=== PATIENT | male | born 1965 | race Caucasian/White ===

== ENCOUNTER → 2023-01-25 13:00 | Outpatient (BNV) | payer OTHER, SELFPAY | PROVIDERS: Visit Provider Psychiatry & Neurology Psychiatry | DX: F32.2 Major depressive disorder, single episode, severe without psychotic features (principal); F10.90 Alcohol use, unspecified, uncomplicated | CPT/HCPCS: 90792; 99214 ==

== ENCOUNTER 2023-02-01 13:00 | Outpatient (RCR) | payer OTHER, SELFPAY ==
[2023-01-25 14:26] VITALS: BP 124/60; PULSE 65; RESP 16; TEMP 36.9
[2023-01-25 14:28] VITALS: BMI 41.3
--- NOTE | 2023-01-25 14:42 | PC.ADMIT ---
Patient admitted to [facility] 01/25/23 with dx: MDD recurrent moderate, Generalized anxiety, Alcohol Dependence in remission since 12/2022. PHP is a step down from recent 7 day detox program. Patient reports he has maintained his sobriety. Patient declines substance use, except for marijuana in distant past only using a few times. Patient reports increased depression but states no SI without plan or intent. Patient denies SI. Patient able ti participate in nursing assessment. Affect appropriate, cooperative, anxious, depressed, responsive to questions, speech clear, clean and well groomed. Patient is goal oriented and states he thinks [facility] will help him. He states it has helped to hear others with similar mental health problems. All medications reconciled with patient and pharmacy. Safety issues reviewed with patient. Copy of Safety Plan given to patient. Nursing assessment completed and charted.
--- NOTE | 2023-01-25 15:17 | HO.PS.ADMBH ---
[facility] Date of Service: 01/25/23 Chief Complaint: depression,AUD Sources of Information: patient interviewed and chart reviewed Additional Sources of Information: [facility] [place] referral information [facility] Healthcare Proxy: No Guardianship: No Medical Problems Affecting Mental Status: No Narrative: 57-year-old male, presenting through therapist referral for major depressive disorder and alcohol use disorder. Last drink was 12/14/2022 and complete a 7-day detox. Currently on Wellbutrin 150 mg and naltrexone 50 mg. Recently had ketamine IV/IM without benefit. Also Latuda recently with nightmares. Low mood, anxiety, lack of enjoyment, poor sleep, low energy, negative view of self. No SI. No psychosis. No history of manic symptoms. Also reports that the house is in a poor state and he has not had the energy or motivation to address this. Hopeful for medications for depression. Has a history of 10 years sobriety in the past up until 2013 when his mother . Relapses since then have been associated with significant life stressors for example ex-girlfriend marrying somebody else, mother's , significant work situation not working out. Presents with major depressive disorder and comorbid alcohol use disorder. History of ketamine therapy, Recently with Dr. Garcia in [place] i.e. it was IV/IM. which was not beneficial. Other medication trials have included Lexapro, Effexor, Trintellix, Latuda, modafinil. Never been on buspirone, lithium, Remeron, Abilify. Never had TMS or ECT. No benefit from Wellbutrin over the last 1 year. Could benefit from alternative medications. Discussed buspirone, Remeron, lithium and Abilify. Overall decided to start Remeron at 15 mg at bedtime and can lower this to 7.5 mg if he experiences significant sedation. May also consider TMS in the future, but aware there are other medication options to try first. Past Psychiatric History: No inpatient episodes. History of partial hospital program. No manic or psychotic symptoms in the past. History of detoxes. History of ketamine therapy, Recently with Dr. Garcia in [place] i.e. it was IV/IM. which was not beneficial. Other medication trials have included Lexapro, Effexor, Trintellix, Latuda, modafinil. Never been on buspirone, lithium, Remeron, Abilify. Never had TMS or ECT. History of 1 suicidal gesture 20 years ago by putting a gun into his mouth. Current medications include naltrexone 50 mg, Wellbutrin 150 mg Nothing acute [facility] Medical History (Updated 01/25/23 @ 15:21 by Tin Mcclendon MD) Anemia Asthma Cirrhosis Diabetes mellitus, type 2 Hypercholesteremia Hypertension Social History: Born and raised in [place]. Lives In the [facility], where brothers and sisters live on the other side. Stable living situation. [employer] for law enforcement criminal justice. 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 Substance History: Alcohol use disorder. History of 10 years sobriety. Recent relapses in the context of psychosocial stressors. Recent discharge from 7-day detox. Trauma History: Bullied during high school Diagnostics Vital Signs (24Hr): Vital Signs - 24 hr 01/25/23 14:26 Temperature 98.4 F Pulse Rate 65 Respiratory Rate 16 Blood Pressure 124/60 BMI result Body Mass Index 41.3 Meds/Allergies Meds Home Medications Medication Instructions Recorded Confirmed Type albuterol sulfate 90 mcg/actuation 2 inh inhalation Q4H PRN Dyspnea 01/25/23 01/25/23 History aerosol inhaler bupropion HCl 150 mg 24 hr tablet, 150 mg PO DAILY 01/25/23 01/25/23 History extended release ezetimibe 10 mg tablet 10 mg PO DAILY 01/25/23 01/25/23 History folic acid 1 mg tablet 1 mg PO DAILY 01/25/23 01/25/23 History furosemide 40 mg tablet 40 mg PO DAILY 01/25/23 01/25/23 History metformin 1,000 mg tablet 1,000 mg PO BID 01/25/23 01/25/23 History naltrexone 50 mg tablet 50 mg PO DAILY 01/25/23 01/25/23 History ramipril 5 mg capsule 5 mg PO DAILY 01/25/23 01/25/23 History rosuvastatin 5 mg tablet 5 mg PO DAILY 01/25/23 01/25/23 History spironolactone 50 mg tablet 50 mg PO DAILY 01/25/23 01/25/23 History thiamine mononitrate (vit B1) 100 100 mg PO DAILY 01/25/23 01/25/23 History mg tablet (Vitamin B-1 (mononitrate)) Mental Status Exam Mental Status Exam Narrative: Pleasant. Engaged. Fairly presented. Organized. Depressed. No SI. No HI. No agitation. No psychosis. Insight and judgment fair Telehealth Telehealth Location of provider rendering services: other ([place]) Location of patient: other ([facility] Patient Identification confirmed using: Name, : Yes Telehealth method: video Patient verbally consented to treatment: Yes Minutes spent on Phone/Video with Pt.: 30 Assessment & Plan Assessment & Plan (1) Major depressive disorder, severe: Status: Acute Code(s): F32.2 - Major depressive disorder, single episode, severe without psychotic features (2) Alcohol use disorder: Status: Acute Code(s): F10.90 - Alcohol use, unspecified, uncomplicated Plan Presents with major depressive disorder and comorbid alcohol use disorder. History of ketamine therapy, Recently with Dr. Garcia in [place] i.e. it was IV/IM. which was not beneficial. Other medication trials have included Lexapro, Effexor, Trintellix, Latuda, modafinil. Never been on buspirone, lithium, Remeron, Abilify. Never had TMS or ECT. No benefit from Wellbutrin over the last 1 year. Could benefit from alternative medications. Discussed buspirone, Remeron, lithium and Abilify. Overall decided to start Remeron at 15 mg at bedtime and can lower this to 7.5 mg if he experiences significant sedation. May also consider TMS in the future, but aware there are other medication options to try first. Follow-up in 1 week Patient educated on: medication risk/benefits, substance abuse and therapeutic strategies Informed Consent: understands Reason for continued partial hosp. stay Substantial Risk for: med/psych decompensation Certification I certify that partial hospital treatment is medically necessary due to the symptoms and problems resulting from the patient's mental illness and the failure to treat the patient at the partial hospital level of care would likely result in the patient requiring inpatient psychiatric care which could not be prevented at a less intensive level of care. Time Spent With Patient Time: Total time managing care of this patient today _50___ minutes.
[2023-01-25 16:09] VITALS: BP 124/60; PULSE 65; RESP 16; TEMP 36.9
--- NOTE | 2023-01-28 14:07 | HO.PHP ---
i met with the client to review his treatment plan. He we discussed his level of anxiety and I asked him if he would like the therapist to directly prompt him. He states that would be helpful .
--- NOTE | 2023-01-28 14:13 | HO.PHP ---
I left a message for Myra Bird [facility] to call.
--- NOTE | 2023-01-30 08:53 | HO.PHP ---
I called and left a message for the clients therapist Myra BUCKLEY re client participation in the program.
--- NOTE | 2023-01-31 11:50 | HO.PHPPROGNO ---
Subjective Subjective Date of Service: 01/31/23 Reason For Visit: depression,AUD Medical Problems Affecting Mental Status: No Interim History: pt seen to day for f/u after starting new medication remeron 15 mg at bedtime; pt statesx he is tolerating well; he felt very tired at frist but the daytime sleepiness has remitted. he is sleeping well at night; he has had many med trials for depression in past; we discussed TMS and he was given some written information regarding TMS. He has a follow up appt with a new prescriber Josie Faye [employer]UCT[employer] TECHNICIAN in [place] Medication Compliance: Yes Side effects from medications: No Attending Groups: Yes Review of Systems Acute medical concerns: No Mental Status Exam Mental Status Exam Narrative: Pleasant. Engaged. Fairly presented. Organized. Depressed. No SI. No HI. No agitation. No psychosis. Insight and judgment fair Patient Appearance: Well Grooomed Patient Orientation: Person, Place, Time and Situation Level of Consciousness: Awake and Alert Patient Behavior: Appropriate Mood Description: Anxious Affect Description: Anxious Ability to Follow Directions: Good Speech Pattern: Clear Memory Description: Intact Hallucinations: None Delusions: Not Present Thought Process: Intact Thought Content: positive for Intact Judgement: Fair Diagnostics Vital Signs (24Hr): BMI result Body Mass Index 41.3 Assessment & Plan Assessment & Plan (1) Major depressive disorder, severe: Status: Acute Code(s): F32.2 - Major depressive disorder, single episode, severe without psychotic features (2) Alcohol use disorder: Status: Acute Code(s): F10.90 - Alcohol use, unspecified, uncomplicated Plan Presents with major depressive disorder and comorbid alcohol use disorder. History of ketamine therapy, Recently with Dr. Garcia in [place] i.e. it was IV/IM. which was not beneficial. Other medication trials have included Lexapro, Effexor, Trintellix, Latuda, modafinil. Never been on buspirone, lithium, Remeron, Abilify. Never had TMS or ECT. No benefit from Wellbutrin over the last 1 year. Could benefit from alternative medications. Discussed buspirone, Remeron, lithium and Abilify. PLan: continue Remeron at 15 mg at bedtime consider TMS in the future, but aware there are other medication options to try first. med renewed Follow-up with out aptient provider 02/11 Patient educated on: diagnosis, medication risk/benefits, TMS and therapeutic strategies Informed Consent: understands, does not understand and further education needed Reason for contiued partial hosp. stay Substantial Risk for: harm to self, inability to function and rapid decompensation Certification I certify that partial hospital treatment is medically necessary due to the symptoms and problems resulting from the patient's mental illness and the failure to treat the patient at the partial hospital level of care would likely result in the patient requiring inpatient psychiatric care which could not be prevented at a less intensive level of care. Total time managing care of this patient today ____ minutes. Discharge Plan Discharge Attending provider: Raul Harrison Medications: New mirtazapine [Remeron] 15 mg tablet 15 mg PO BEDTIME Qty: 7 0RF mirtazapine [Remeron] 15 mg tablet 15 mg PO BEDTIME Qty: 14 0RF Discontinued bupropion HCl 150 mg tablet extended release 24 hr 150 mg PO DAILY No Action albuterol sulfate 90 mcg/actuation HFA aerosol inhaler 2 inh inhalation Q4H PRN (Reason: Dyspnea) folic acid 1 mg tablet 1 mg PO DAILY naltrexone 50 mg tablet 50 mg PO DAILY ramipril 5 mg capsule 5 mg PO DAILY metformin 1,000 mg tablet 1,000 mg PO BID furosemide 40 mg tablet 40 mg PO DAILY ezetimibe 10 mg tablet 10 mg PO DAILY rosuvastatin 5 mg tablet 5 mg PO DAILY thiamine mononitrate (vit B1) [Vitamin B-1 (mononitrate)] 100 mg tablet 100 mg PO DAILY spironolactone 50 mg tablet 50 mg PO DAILY
--- NOTE | 2023-02-05 08:31 | PC.NURSE ---
Patient called out sick today. He told staff that he thought it was the new medication Mirtazapine so he stopped taking it. I called Andres and left him a message to call me back to f/u.
--- NOTE | 2023-02-05 12:02 | PC.NURSE ---
Andres called me and reports since he started Mirtazapine he felt increased tiredness. He also reports having diarrhea with stomach pain in upper and lower abdomen with prince/white colored stools over the weekend and thus stopped the medication. He stated the stools have returned to normal. Dr Fraser is aware. Patient advised to f/u with his primary care doctor regarding his symptoms including prince/white colored stool with abdominal pain. Andres stated he would call his primary care doctor after lunch today to f/u.
--- NOTE | 2023-02-06 08:04 | PC.NURSE ---
Andres called staff and stated he continues not to feel well c/o stomach pain. He stated he f/u with his doctor yesterday and lab work was ordered. He will be discharging from the program. He stopped taking the Remeron. [facility] staff Jana spoke to Alexis regarding discharge from the program.
--- NOTE | 2023-02-06 09:46 | HO.PHP ---
On 01/31/23 the clients case was reviewed and opened in treatment team
== END 2023-02-01 23:59 | disposition home or self-care (01) ==
LOC: HO.PHPA 13:00
PROVIDERS: Visit Provider Psychiatry & Neurology Psychiatry
DX: F32.2 Major depressive disorder, single episode, severe without psychotic features (principal); F10.90 Alcohol use, unspecified, uncomplicated
CPT/HCPCS: 90791; 90853